=== PATIENT | female | born 1950 | race Caucasian/White ===

== ENCOUNTER 2017-10-26 10:44 | Emergency (ER) | payer MEDICARE, OTHER ==
[2017-10-26 11:05] VITALS: BP 149/74
--- NOTE | 2017-10-26 12:05 | UC ---
Throat Pain/Nasal Elliott HPI - HPI Summary HPI Summary: 67 y/o female presents to the urgent care c/o productive cough w/ yellowish sputum for the past 4 weeks. Pt reports her PCP Rx Amoxicillin PO for Acute sinusitis about 3 weeks ago and she feels symptoms have worsen since for the past week cough is productive and not allowing her to sleep at night time. Pt Has been taking Alkazeltzer plus to alleviate symptoms. Pt denies wheezing, fever, SoB, chest pain, abdominal pain, N/V/D. - History of Current Complaint Hx Obtained From: Patient Onset/Duration: Gradual Onset, Lasting Weeks - 4 weeks, Still Present, Worse Since - last 2 days Severity: Moderate Pain Intensity: 0 Pain Scale Used: 0-10 Numeric Cough: Sputum Appears - green Associated Signs & Symptoms: Positive: Sinus Discomfort, Nasal Discharge. Negative: Fever - Epiglottits Risk Factors Epiglottis Risk Factors: Negative <Sima Dooley - Last Filed: 10/26/17 17:26> <Mojgan Duarte - Last Filed: 10/27/17 08:18> - History of Current Complaint Chief Complaint: UCRespiratory Stated Complaint: ST/SOB Time Seen by Provider: 10/26/17 12:02 - Allergies/Home Medications Allergies/Adverse Reactions: Allergies Allergy/AdvReac Type Severity Reaction Status Date / Time No Known Allergies Allergy Verified 10/26/17 11:05 PMH/Surg Hx/FS Hx/Imm Hx Previously Healthy: Yes - Pt denies PMHX - Surgical History Surgical History: Yes Surgery Procedure, Year, and Place: Hysterectomy. Goiter removal. Left leg steel rods and plates both Femur and lower leg and ankle - Family History Known Family History: Negative: Cardiac Disease, Hypertension Family History: Hypothyrodism - Social History Occupation: Employed Full-time Lives: With Family Alcohol Use: Rare Substance Use Type: None Smoking Status (MU): Never Smoked Tobacco <Sima Dooley - Last Filed: 10/26/17 17:26> Review of Systems Constitutional: Negative Skin: Negative Eyes: Negative ENT: Sore Throat, Nasal Discharge, Sinus Congestion Respiratory: Cough - productive w/ green sputum Cardiovascular: Negative Gastrointestinal: Negative Genitourinary: Negative Motor: Negative Neurovascular: Negative Musculoskeletal: Negative Neurological: Negative Psychological: Negative Is Patient Immunocompromised?: No All Other Systems Reviewed And Are Negative: Yes <Sima Dooley - Last Filed: 10/26/17 17:26> Physical Exam - Summary Physical Exam Summary: Vital Signs Reviewed: Yes General: well developed, well nourished female sitting in the examining table w/ o any apparent distress Eyes: Positive: Conjunctiva Clear - PERRLA, EOMI, fundi grossly normal ENT: Positive: Normal ENT inspection, Hearing grossly normal, Pharynx normal, Nasal congestion - edematous and erythematous nasal mucosa, Nasal drainage - yellowish drainage, TMs normal. Negative: Tonsillar swelling, Tonsillar exudate Neck: Positive: Supple, Nontender, No Lymphadenopathy Respiratory: no orthopnea or dyspnea. Able to speak in full sentences, no retractions or accessory muscle use, no tripod position, stridor, or head bobbing. Positive breath sounds bilaterally, mild scattered rhonchi in the posterior B/L upper lungs.no wheezes, no crackles, rales. Cardiovascular: Positive: RRR, No Murmur, Pulses Normal, Brisk Capillary Refill Abdomen Description: Positive: Nontender, No Organomegaly, Soft. Negative: CVA Tenderness (R), CVA Tenderness (L) Bowel Sounds: Positive: Present Musculoskeletal Exam: Normal Musculoskeletal: Positive: Strength Intact, ROM Intact, No Edema Neurological Exam: Normal Psychological Exam: Normal Skin Exam: Normal Triage Information Reviewed: Yes Vital Signs: Initial Vital Signs Temp 99.2 F 10/26/17 11:00 Pulse 67 10/26/17 11:00 Resp 10/26/17 11:00 BP 149/74 10/26/17 11:00 Pulse Ox 99 10/26/17 11:00 <Sima Dooley - Last Filed: 10/26/17 17:26> Vital Signs: Initial Vital Signs Temp 99.2 F 10/26/17 11:00 Pulse 67 10/26/17 11:00 Resp 10/26/17 11:00 BP 149/74 10/26/17 11:00 Pulse Ox 99 10/26/17 11:00 <Mojgan Duarte - Last Filed: 10/27/17 08:18> Throat Pain/Nasal Course/Dx - Course Course Of Treatment: 67 y/o female presents to the urgent care c/o productive cough w/ yellowish sputum for the past 4 weeks. Pt reports her PCP Rx Amoxicillin PO for Acute sinusitis about 3 weeks ago and she feels symptoms have worsen since for the past week cough is productive and not allowing her to sleep at night time. Pt Has been taking Alkazeltzer plus to alleviate symptoms. Pt denies wheezing, fever, SoB, chest pain, abdominal pain, N/V/D. Hx obtained. Pt w/ B/L posterior lungs w/ scattered rhonchi on examination O2SAt: 99%. Pt w/ probably bronchitis. Pt Rx Z-omid PO and Tessalon tabs to alleviate cough. Also advised to continue taking Zyrtec and Rx Flonasa to clear sinuses. Pt advised to increase fluid intake and eat well. if not improvement or worsening of symptoms to return to the urgent care or f/u with PCP for further management. Pt 's BP is elevated today advised to decrease salt in diet, monitor BP and f/u with PCP for further management. Pt understood and agreed with plan of care, - Differential Dx/Diagnosis Differential Diagnosis/HQI/PQRI: Influenza, Laryngitis, Pharyngitis, Sinusitis, URI, Other - beonchitis, pneumonia Provider Diagnoses: 1- Acute bronchitis. 2-Cough. 3- Elevated BP W/ Hx of HTN <Sima Dooley - Last Filed: 10/26/17 17:26> Discharge - Sign-Out/Discharge Documenting (check all that apply): Discharge/Admit/Transfer - D/C home - Billing Disposition and Condition Condition: STABLE Disposition: HOME <Sima Dooley - Last Filed: 10/26/17 17:26> - Billing Disposition and Condition Condition: STABLE Disposition: HOME <Mojgan Duarte - Last Filed: 10/27/17 08:18> - Discharge Plan Condition: Stable Disposition: HOME Prescriptions: Azithromyxin OMID (NF) [Z-Omid (Zithromax) 250 mg tabs #6] 2 tab PO .TODAY, THEN 1 DAILY #6 tab Benzonatate CAP* [Tessalon 100 MG CAP*] 100 mg PO TID #21 cap Fluticasone NASAL SPRAY 50MCG* [Flonase NASAL SPRAY 50MCG*] 2 spray BOTH NARES DAILY #1 btl Patient Education Materials: Acute Bronchitis (ED), Low-Sodium Diet (ED) Referrals: Cristian CHAMORRO,Elba [Primary Care Provider] - 3 Days Additional Instructions: 1-Please take full course of antibiotic to avoid resistance. 2-Take Tessalon PO tabs as directed and use the albuterol inhaler to alleviate cough. Increase fluid intake, rest and eat well. 3- Use saline drops and flonase nasal spray to clear your sinuses. 4- If symptoms worsen or your develop SOB with fever and severe wheezing please go immediately to the ER further evaluation and treatment. Otherwise f/u w/ uour PCP or return to the urgent care if symptoms do not improve for further management. 5-Your BP is elevated today. please decrease salt in your diet, monitor BP and if it continues to be elevated please f/u with your PCP for further management Attestation Statement User Type: Provider - I was available for consult. This patient was seen by the GEOVANNY. The patient was not presented to, seen by, or examined by me. -Denisa <Mojgan Duarte - Last Filed: 10/27/17 08:18>
== END 2017-10-26 12:36 | disposition home or self-care (01) ==
LOC: UCCORT 10:44
DX: J20.9 Acute bronchitis, unspecified (principal); I10 Essential (primary) hypertension
CPT/HCPCS: 99212; G0463

== ENCOUNTER 2018-05-07 09:30 | Emergency (ER) | payer OTHER ==
[2018-05-07 10:46] VITALS: BP 140/80
--- NOTE | 2018-05-07 11:00 | UC ---
Throat Pain/Nasal Elliott HPI - HPI Summary HPI Summary: Patient presents with 6 days of productive cough with yellow sputum. Patient states she has fatigue and body chills. Patient states her left lung hurts. Patient denies nausea vomiting. Patient's taken DayQuil and NyQuil with little improvement. Patient without any head congestion. Patient without known lung disease. Patient does not smoke cigarettes. Patient denies any chest pain. Patient states she feels like she gets winded when she has coughing episodes. No lightheadedness. No rash. No other complaints. Patient's medications reviewed this visit - History of Current Complaint Chief Complaint: UCRespiratory Stated Complaint: CONGESTION/COUGH Time Seen by Provider: 05/07/18 10:40 Hx Obtained From: Patient Pain Intensity: 1 - Allergies/Home Medications Allergies/Adverse Reactions: Allergies Allergy/AdvReac Type Severity Reaction Status Date / Time No Known Allergies Allergy Verified 05/07/18 10:44 Home Medications: Home Medications Calcium Carbonate [Calcium] 500 mg PO BID 05/07/18 [History Confirmed 05/07/18] D-Methorphan/PE/Acetaminophen [Daytime Cold Multi-Symp Gelcap] 1 each PO ONCE [History Confirmed 05/07/18] Ibuprofen TAB* [Advil TAB*] 400 mg PO Q6H PRN 05/07/18 [History Confirmed ] PMH/Surg Hx/FS Hx/Imm Hx Previously Healthy: Yes - Surgical History Surgical History: Yes Surgery Procedure, Year, and Place: Hysterectomy. Goiter removal. Left leg steel rods and plates both Femur and lower leg and ankle - Family History Known Family History: Positive: Non-Contributory Negative: Cardiac Disease, Hypertension Family History: Hypothyrodism - Social History Lives: With Family Alcohol Use: None Substance Use Type: None Smoking Status (MU): Never Smoked Tobacco Review of Systems All Other Systems Reviewed And Are Negative: Yes Constitutional: Positive: Fatigue Respiratory: Positive: Cough, Other - wheeze, sputum Physical Exam - Summary Physical Exam Summary: Vital Signs Reviewed: Yes A+Ox3, no distress Eyes: Conjunctiva Clear, MIROSLAVA. EOM intact and full ENT: Hearing grossly normal TM x 2 clear, mmoist, uvula midline, no exudate, no erythema Neck: Positive: Supple Respiratory: Positive: No respiratory distress, No accessory muscle use scattered wheeze, couging paroxysms Cardiovascular: RRR nl s1, s2 no m/r CBT <2 sec abd soft + BS nt/nd no guarding, no distension Musculoskeletal Exam: COURTNEY x 4 without difficulty Strength Intact, ROM Intact Neurological: Positive: Alert, + sensation throughout Psychological: Positive: Normal Response To Family Skin: Positive: no rash, no ecchymosis Triage Information Reviewed: Yes Vital Signs: Initial Vital Signs Temp 98.3 F 05/07/18 10:41 Pulse 72 05/07/18 10:41 Resp 18 05/07/18 10:41 BP 140/80 05/07/18 10:41 Pulse Ox 97 05/07/18 10:41 Diagnostics - Radiology No standard instances Radiology Interpretation Completed By: Radiologist - Patient Name: RONY MONSIVAIS Medical Record#: [id number] Ordering Physician: Mojgan Duarte MD Acct.#: [id number] : 1950 Age: 68 Sex: F Location: [facility] Exam Date: 05/07/18 110 ADM Status: REG ER Order Information: CHEST PA & LAT 2 VWS Accession Number: [id number] CPT: 68968 INDICATION: Cough and fever. COMPARISON: Comparison is made with a prior study from June 11, 2016. TECHNIQUE: Dual- energy PA and lateral views of the chest were obtained. FINDINGS: The heart is within normal limits in size. Mediastinal and hilar contours appear within normal limits. The lungs are clear. No pleural effusion is present. IMPRESSION: NO EVIDENCE FOR ACTIVE CARDIOPULMONARY DISEASE. <Electronically signed by Joseluis Ladd MD in OV> 05/07/18 112 Dictated By: Joseluis Ladd MD Dictated Date/ Time: 05/07/18 112 Transcribed Date/Time: 05/07/18 112 Copy to: CC: Ryan Foster MD; Mojgan Duarte MD Imaging - [facility] - [place] [facility] [address] [place] [address] ph [phone]) ph ([phone]) ph ([phone]) This report is only to be considered final once signed by the Provider(s) as displayed in the "<Electronically Signed by >" field (s). Absence of a signature indicates the report is in a draft status and still needs to be finalized. In the event this document was created by someone other than the signing Provider, the individual initiating the document will be listed in the "Entered by:" or "Dictated by:" perez. 1 of 1 Re-Evaluation - Re-Evaluation First Eval Change: Improved - improved following neb secretion precautions abx mdi humidified air return precaution Throat Pain/Nasal Course/Dx - Course Course Of Treatment: Pt presents with progressive cough, sputum, fatigue. VSS. pt with difficuse wheeze and coughing paroxysms. will chek cxr. duoneb. reassess. Borderline BP - recommend PCP f/u - Differential Dx/Diagnosis Provider Diagnosis: Acute bronchitis Discharge - Sign-Out/Discharge Documenting (check all that apply): Patient Departure All imaging exams completed and their final reports reviewed: Yes - Discharge Plan Condition: Stable Disposition: HOME Prescriptions: Albuterol HFA INHALER* [Ventolin HFA Inhaler*] 2 puff INH Q4H PRN #1 mdi PRN Reason: wheeze Amoxicillin PO (*) [Amoxicillin 500 MG CAP*] 500 mg PO Q12H #20 cap Fluconazole [Diflucan 150 MG (NF)] 150 mg PO ONCE PRN #1 tab PRN Reason: vaginal yeast infection Inhaler, Assist Devices [Aerochamber Mv] 1 each PO Q4HR #1 spacer predniSONE TAB* [Deltasone TAB*] 50 mg PO DAILY #5 tab Patient Education Materials: Acute Bronchitis (ED) Referrals: Cristian CHAMORRO,Elba [Primary Care Provider] - Additional Instructions: -Take antibiotics and prednisone exactly as prescribed until gone -Use your albuterol puffer - 2 puffs every 4 hours for the next 3 days - then as needed -Stay well hydrated - avoid excess caffeine and all alcohol - eat regular, healthy meals - - humidify the air in the room where you sleep - boil water, run a hot steam shower, vaporizer, cups of water by heat register - okay to take over the counter decongestant and cough medication -- These infections are spread by secretions - do NOT share eating or drinking utensils - clean items you share with other people such as cell phones, computer mouse, TV remote, computer tablets,etc.. Once you have been antibiotics for 2 days, change your toothbrush and your pillowcase. -Contact your doctor to arrange a follow-up appointment this week. Call your doctor, return here or go to the emergency department with any questions or concerns - Billing Disposition and Condition Condition: STABLE Disposition: Home
[2018-05-07] MEDS ORDERED: Albuterol/Ipratropium NEB.SOL* Albuterol 2.5 MG/Ipratropium 0.5 MG 3 ML INH ONE (11:07)
== END 2018-05-07 12:00 | disposition home or self-care (01) ==
LOC: UCCORT 09:30
DX: J20.9 Acute bronchitis, unspecified (principal)
CPT/HCPCS: 71046; 99212; A9270-GY; G0463

== ENCOUNTER 2018-10-30 11:24 | Emergency (ER) | payer OTHER ==
[2018-10-30 13:18] VITALS: BP 139/76
--- NOTE | 2018-10-30 14:02 | ED ---
Back Pain - HPI Summary HPI Summary: 68 yr old female with the complaint of low back pain. Onset of pain about a week ago while doing too many sit ups. Pain is in the lower back midline and to right at about the LS junction. No radiation of pain down the legs or numbness. No bowel or bladder incontinence. - History of Current Complaint Chief Complaint: UCBackPain Stated Complaint: LOWER BACK PAIN Time Seen by Provider: 10/30/18 13:29 Pain Intensity: 6 - Allergies/Home Medications Allergies/Adverse Reactions: Allergies Allergy/AdvReac Type Severity Reaction Status Date / Time No Known Allergies Allergy Verified 10/30/18 13:19 Home Medications: Home Medications Baclofen TAB* [Lioresal TAB*] 1 tab PO Q4H 10/30/18 [History Confirmed 10/30/18] PMH/Surg Hx/FS Hx/Imm Hx - Cancer History Cancer Type, Location and Year: uterine - Surgical History Surgery Procedure, Year, and Place: Hysterectomy. Goiter removal. Left leg steel rods and plates both Femur and lower leg and ankle Infectious Disease History: No Infectious Disease History: Denies: Hx Clostridium Difficile, Hx Hepatitis, Hx Human Immunodeficiency Virus (HIV), Hx of Known/Suspected MRSA, Hx Shingles, Hx Tuberculosis, Hx Known/ Suspected VRE, Hx Known/Suspected VRSA, History Other Infectious Disease, Traveled Outside the [place] in Last 30 Days - Family History Known Family History: Positive: Non-Contributory Negative: Cardiac Disease, Hypertension Family History: Hypothyrodism - Social History Occupation: Retired Alcohol Use: None Substance Use Type: Reports: None Smoking Status (MU): Never Smoked Tobacco Review of Systems Constitutional: Negative Positive: Other - back pain All Other Systems Reviewed And Are Negative: Yes Physical Exam Triage Information Reviewed: Yes Vital Signs On Initial Exam: Initial Vitals Temp Pulse Resp BP Pulse Ox 97.5 F 60 16 139/76 96 10/30/18 13:06 10/30/18 13:06 10/30/18 13:06 10/30/18 13:06 10/30/18 13:06 Vital Signs Reviewed: Yes Appearance: Positive: Well-Appearing, No Pain Distress Skin: Positive: Warm, Skin Color Reflects Adequate Perfusion Head/Face: Positive: Normal Head/Face Inspection Eyes: Positive: EOMI, MIROSLAVA ENT: Positive: Normal ENT inspection Neck: Positive: Nontender Respiratory/Lung Sounds: Positive: Clear to Auscultation, Breath Sounds Present Cardiovascular: Positive: RRR. Negative: Murmur Abdomen Description: Negative: Distended Musculoskeletal: Positive: Other - low background investigator mildly at the right LS junction area. Neurological: Positive: Sensory/Motor Intact, Alert, Oriented to Person Place, Time, CN Intact II-III, Normal Gait, Speech Normal Psychiatric: Positive: Normal Diagnostics - Vital Signs Vital Signs Temp Pulse Resp BP Pulse Ox 10/30/18 13:06 97.5 F 60 16 139/76 96 - Laboratory Lab Statement: Any lab studies that have been ordered have been reviewed, and results considered in the medical decision making process. - Radiology LS spine Radiology Interpretation Completed By: Radiologist - SALO, disk degeneration multiple levels Back Pain Course/Dx - Course Course Of Treatment: 68 yr old with low back pain, djd. Will Rx medrol dose [place]. FU with PMD rosalba for MRI. - Diagnoses Provider Diagnoses: Degenerative disc disease, lumbar, Back pain Discharge - Sign-Out/Discharge Documenting (check all that apply): Patient Departure All imaging exams completed and their final reports reviewed: Yes - Discharge Plan Condition: Good Disposition: HOME Prescriptions: Cyclobenzaprine TAB* [Flexeril 10 MG TAB*] 10 mg PO TID PRN #14 tab PRN Reason: Pain methylPREDNISolone [Medrol] 4 mg PO .SEE LAKESHA INSTRUCTION #1 tab.ds.pk Patient Education Materials: Arthritis (ED), Hypertension (ED) Referrals: Cristian CHAMORRO,Elba [Primary Care Provider] - 1 Day - Billing Disposition and Condition Condition: GOOD Disposition: Home
== END 2018-10-30 14:43 | disposition home or self-care (01) ==
LOC: UCCORT 11:24
DX: M51.36 Other intervertebral disc degeneration, lumbar region (principal)
CPT/HCPCS: 72110; 99212; G0463